=== PATIENT | male | born 2005 | race Caucasian/White ===

== ENCOUNTER 2023-08-10 19:05 | Emergency (ER) | payer OTHER ==
[~2023-08-10] VITALS: Ht 167.6 cm; Wt 61.2 kg
[~2023-08-10 19:05] MED LIST: ACET120S PR; ACET325UDC; ALBU90OI61 INH; AMOCLA400S PO; AMOX25SU PO; AMOX50SU PO; AZIT100SU PO; AZIT200SU PO; CODACEE120 PO; GUAI100SY PO; IBUP100S; MONT4 PO; OTC ALLERGY MED; OTC MEDS; PRED15SY PO; RXAZITHSU PO; RXCODACESY PO; RXCODGUASY PO; RXONDA4ODT MM; SULTRIEL PO; TRIM100S PR
[2023-08-10 19:12] VITALS: BP 129/70
[2023-08-11] MEDS ORDERED: CEPH500 PO ×2 (20:24→20:28)
[2023-08-11] MEDS ORDERED: BACTRIM DS TAB1 EAC1 PO ×2 (20:24→20:28)
== END 2023-08-10 22:20 | disposition home or self-care (01) ==
LOC: ER 19:05
DX: S01.511A Laceration without foreign body of lip, initial encounter (principal); J45.909 Unspecified asthma, uncomplicated; W01.198A Fall on same level from slipping, tripping and stumbling with subsequent striking against other object, initial encounter; Y92.89 Other specified places as the place of occurrence of the external cause
CPT/HCPCS: 12014; 90471; 90714; 96372-59; 99282-25; J1885

== ENCOUNTER 2023-08-11 18:14 | Emergency (ER) | payer OTHER ==
[~2023-08-11] VITALS: Ht 167.6 cm; Wt 63.0 kg
[2023-08-11 18:26] VITALS: BP 139/64
[2023-08-11] MEDS ORDERED: CEPH500 PO ×2 (20:24→20:28)
[2023-08-11] MEDS ORDERED: BACTRIM DS TAB1 EAC1 PO ×2 (20:24→20:28)
== END 2023-08-11 20:35 | disposition home or self-care (01) ==
LOC: ER 18:14
DX: T81.41XA Infection following a procedure, superficial incisional surgical site, initial encounter (principal); Y83.8 Other surgical procedures as the cause of abnormal reaction of the patient, or of later complication, without mention of misadventure at the time of the procedure; J45.909 Unspecified asthma, uncomplicated
CPT/HCPCS: 99282; A9270